=== PATIENT | female | born 1990 | race Caucasian/White ===

== ENCOUNTER 2018-09-11 11:51 | Day surgery (SDC) | payer OTHER ==
[2018-09-10 11:53] VITALS: BMI 22.0
[2018-09-11] MEDS ORDERED: PROPOFOL 20 ML ONE ×3 (14:29→16:24)
[2018-09-11] MEDS ORDERED: MIDAZOLAM HCL 2 MG/2 ML SINGLE DOSE VIAL ONE (14:29)
[2018-09-11] MEDS ORDERED: DEXAMETHASONE SOD PHOSPHATE 4 MG/1 ML VIAL ONE (14:30)
[2018-09-11] MEDS ORDERED: ONDANSETRON 4 MG/2 ML VIAL ONE (14:30)
[2018-09-11] MEDS ORDERED: ceFAZolin SODIUM 1 GM VIAL ONE (14:30)
[2018-09-11] MEDS ORDERED: KETOROLAC TROMETHAMINE 30 MG/1 ML VIAL ONE (14:30)
[2018-09-11] MEDS ORDERED: LIDOCAINE HCL 2% JELLY (5 ML/TUBE) ONE (14:30)
[2018-09-11] MEDS ORDERED: BUPIVACAINE HCL/PF 2.5 MG/ML - 30 ML VIAL IJ ONE (16:19)
[2018-09-11] MEDS ORDERED: PROMETHAZINE HCL 25 MG/1 ML VIAL IVPUSH PRN (16:44)
[2018-09-11] MEDS ORDERED: oxyCODONE HCL 5 MG TABLET PO PRN (16:44)
[2018-09-11] MEDS ORDERED: ONDANSETRON 4 MG/2 ML VIAL IVPUSH PRN (16:44)
[2018-09-11] MEDS: oxyCODONE HCL 5 MG TABLET PO PRN ×2 (17:36→17:37)
[2018-09-11 18:05] VITALS: BP 114/65; PULSE 68; TEMP 98.1
--- NOTE | 2018-09-16 19:01 | OP ---
DATE OF OPERATION: 09/11/2018 PREOPERATIVE DIAGNOSES: 1. Right ring metacarpal fracture. 2. Right long metacarpal fracture. 3. Right index metacarpal fracture. POSTOPERATIVE DIAGNOSES: 1. Right ring metacarpal fracture. 2. Right long metacarpal fracture. 3. Right index metacarpal fracture. OPERATIVE PROCEDURE: 1. Open reduction and internal fixation of right ring finger metacarpal fracture. 2. Open reduction and internal fixation of right long finger metacarpal fracture. 3. Closed reduction with manipulation of right index metacarpal fracture. SURGEON: Jorden Braxton MD BUS CLEANER: TE [place] ANESTHESIA: General. COMPLICATION: None. INDICATION FOR PROCEDURE: The patient is a 27-year-old female with the above findings, indicated for operative treatment. Risks, benefits, and alternatives were discussed with the patient at length. Proper informed consent was obtained. PROCEDURE: After proper identification of the patient and correct operative site, patient was brought to the operating room, placed supine on the table. Prominences were well padded. General anesthesia was given. Right upper extremity was prepped and draped in usual sterile fashion. Well-padded tourniquet was placed as well as a sterile prep. Esmarch bandage was used to exsanguinate the right upper extremity. Tourniquet was inflated to 250 mmHg. Attention was then turned to a closed reduction maneuver where traction was placed on all fingers. The index metacarpal aligned quite nicely with this maneuver. However, the ring and long fingers did not fully align to a satisfactory position. In any event, all of the fractures were unstable. Once traction was released, all fractures again became significantly displaced. At this point, a small incision was made over the metacarpal head of the right finger. Blunt dissection was performed through the subcutaneous tissue, and a very small incision was made in the ulnar aspect of the extensor mechanism. A guidewire was placed in a [id number] direction and attempted to go across the fracture site. However, after multiple attempts, this was not possible, and it was decided to open the fracture site. A second small incision was made over the fracture site of the ring metacarpal. Blunt and sharp dissection was performed through the subcutaneous tissues. Once I reached the fracture, it was clear that there was soft tissue interposed which was preventing the fracture reduction and guidewire passing. Once the soft tissue was removed, the fracture was able to be reduced, and the guidewire was placed across the fracture site. A reamer was then used to overdrill the guidewire, and an ExsoMed metacarpal intramedullary nail was placed from the [id number] direction, obtained secure, stable fixation with satisfactory reduction. Attention was then turned to the long finger metacarpal. A second small incision was made over the distal aspect of the bone at the metacarpal head. Incision again was taken sharply through the skin, with blunt and sharp dissection through the subcutaneous tissues and the ulnar aspect of the extensor mechanism. A guidewire was placed into the metacarpal head in the dorsal aspect and was able to easily be passed across the fracture site. This fracture site did not need to be opened. Once the guidewire was properly placed and reduction had been achieved, the guidewire was overreamed, and another metacarpal intramedullary device was placed into the long finger metacarpal, obtaining secure, stable, satisfactory fixation and reduction of the fracture. At this point, the index finger was observed and found to have near-anatomic reduction as the reduction of the other metacarpals and fixation provided satisfactory traction of the index finger metacarpal to stabilize and secure it and reduce it properly. Therefore, it was decided that no internal fixation would be performed on this finger as the risks outweighed the benefits. Wounds were irrigated and repaired with sutures, and sterile dressings and splint were placed. Patient was reversed from anesthesia and brought to Recovery in stable condition. Marques Al, the intellectual property legal assistant, was integral throughout the procedure. The procedure could not have been performed without a skilled operative intellectual property legal assistant. Isabel [id number]
== END 2018-09-11 18:00 | disposition home or self-care (01) ==
LOC: FASU 11:51
PROVIDERS: ATTEND Orthopaedic Surgery Hand Surgery
PROC: 0PSP04Z Reposition Right Metacarpal with Internal Fixation Device, Open Approach (ICD-10-PCS; 2018-09-11)
PROC: 0PSPXZZ Reposition Right Metacarpal, External Approach (ICD-10-PCS; 2018-09-11)
PROC: 0PSP04Z Reposition Right Metacarpal with Internal Fixation Device, Open Approach (ICD-10-PCS; principal; 2018-09-11 15:12)
DX: S62.320A Displaced fracture of shaft of second metacarpal bone, right hand, initial encounter for closed fracture (principal); S62.322A Displaced fracture of shaft of third metacarpal bone, right hand, initial encounter for closed fracture; S62.324A Displaced fracture of shaft of fourth metacarpal bone, right hand, initial encounter for closed fracture; X58.XXXA Exposure to other specified factors, initial encounter; Y93.89 Activity, other specified; Y92.89 Other specified places as the place of occurrence of the external cause
CPT/HCPCS: 73130-TC-RT-FY; 84703; 94760